=== PATIENT | male | born 1940 ===

== ENCOUNTER 2023-09-13 07:30 | Inpatient (IN) | payer OTHER ==
[~2023-09-13] VITALS: Ht 167.6 cm; Wt 68.0 kg
[2023-09-13 08:58] LABS: PH,URINE 5.5 (5.0-8.0); URINE APPEARANCE Clear; URINE BILIRRUBIN Negative (NEGATIVE); URINE BLOOD Negative; URINE COLOR Yellow; URINE GLUCOSE Negative (NEGATIVE); URINE LEUKOCYTE Negative; URINE NITRATE Negative; URINE PROTEIN Negative (NEGATIVE); URINE UROBILINOGEN 0.2 E.U./dl
[2023-09-13] MEDS ORDERED: METFORMIN HCL1000 M2 PO (08:58)
[2023-09-13] MEDS ORDERED: ZESTRIL20 MG PO (08:58)
[2023-09-13] MEDS ORDERED: CHILDREN'S ASPI81 MG PO (08:58)
[2023-09-13 08:59] LABS: HEMATOCRIT 30.5 % (39.0-48.0); HEMOGLOBIN 10.2 g/dL (13-16.00); MEAN CELL VOLUME 85.4 fL (80.0-100.00); MEAN CORPUSCULAR HEMOGLOBIN 28.6 pg (27.00-32.0); MEAN CORPUSCULAR HGB CONC 33.5 g/dl (32.0-36.0); PLATELET COUNT 177 K/uL (150-450); RED BLOOD COUNT 3.57 M/uL (4.00-6.00); RED CELL DISTRIBUTION WIDTH 14.1 % (11.5-14.5)
[2023-09-13 09:02] LABS: URINE EPITHELIAL CELLS 2.1 uL (0.0-38.8)
[2023-09-13 09:04] LABS: URINE BACTERIA 0 uL (0.0-1933); URINE WBC 1.3 uL (0.0-23.2)
[2023-09-13 09:34] LABS: ALBUMIN 3.5 gm/dL (3.4-5.0); BILIRUBIN TOTAL 0.58 mg/dL (0.3-1.2); CALCIUM 8.9 mg/dL (8.5-10.1); CREATININE SERUM 1.1 mg/dL (0.70-1.30); GFR 64.09; GLOBULINA 3.2 G/DL (2.4-3.5); INR 1.11; PARTIAL THROMBOPLASTIN TIME 31.2 SECONDS (22.0-34.0); POTASSIUM 4.04 mEq/L (3.5-5.1); PROTHROMBIN TIME 11.6 SECONDS (9.0-11.5); TOTAL PROTEIN 6.7 gm/dL (6.4-8.2)
[2023-09-19] MEDS ORDERED: CEFAZOLIN SODIUM 1,000 MG VIAL ONE (06:46)
[2023-09-19] MEDS ORDERED: KETOROLAC TROMETHAMINE 60 MG VIAL IM ONE ×2 (06:46→08:45)
[2023-09-19] MEDS ORDERED: LIDOCAINE HCL 1%/Epi 20ML VIAL IJ ONE ×2 (06:47→08:45)
[2023-09-19] MEDS ORDERED: TRANEXAMIC ACID 100MG/1ML (1000MG) AMPUL IV ONE (06:47)
[2023-09-19] MEDS ORDERED: BUPIVACAINE HCL/PF 0.5% 30ML ML ONE (06:47)
[2023-09-19] MEDS ORDERED: VANCOMYCIN HCL 1,000 MG VIAL ONE (07:27)
[2023-09-19] MEDS ORDERED: POVIDONE-IODINE 3 EA MED..SWAB TOP ONE (07:27)
[2023-09-19] MEDS ORDERED: MAXFE CAPLET1 EAC1 (07:42)
[2023-09-19] MEDS ORDERED: ISOPROPYL ALCOHOL 30 ML OUNCE TOP ONE (08:45)
[2023-09-19] MEDS ORDERED: BUPIVACAINE HCL/PF 0.5% 30ML ML IU ONE (08:45)
[2023-09-19] MEDS ORDERED: CEFAZOLIN SODIUM 2,000 MG in 0.9 % SODIUM CHLORIDE 100 ML IV ONE (08:45)
[2023-09-19] MEDS ORDERED: VANCOMYCIN HCL 1,000 MG in 0.9 % SODIUM CHLORIDE 250 ML IR ONE (08:45)
[2023-09-19] MEDS ORDERED: TRANEXAMIC ACID 1,000 MG in 0.9 % SODIUM CHLORIDE 100 ML IV ONE (08:45)
[2023-09-19] MEDS ORDERED: MORPHINE SULFATE 4 MG/ML VIAL IV ONE (08:45)
[2023-09-19] MEDS ORDERED: POVIDONE-IODINE 118 ML BOTT TOP ONE (08:45)
[2023-09-19] MEDS ORDERED: MORPHINE SULFATE 4 MG/ML CARTRIDGE IV PRN (09:45)
[2023-09-19] MEDS ORDERED: OxyCODONE HCL 5 MG TABLET (ROXICODONE) PO PRN (09:45)
[2023-09-19] MEDS ORDERED: SODIUM CHLORIDE 0.45 % 1,000 ML IV SCH (09:45)
[2023-09-19] MEDS ORDERED: ONDANSETRON HCL 2 MG/ML VIAL IV PRN (09:45)
[2023-09-19] MEDS ORDERED: ACETAMINOPHEN 500 MG GEL..CAP PO SCH (12:00)
[2023-09-19] MEDS ORDERED: GABAPENTIN 300 MG CAPSULE PO SCH (17:00)
[2023-09-19] MEDS ORDERED: CEFAZOLIN SODIUM 1,000 MG VIAL IV SCH (17:00)
[2023-09-20 05:28] LABS: HEMATOCRIT 23.4 % (39.0-48.0); MEAN CELL VOLUME 83.8 fL (80.0-100.00); MEAN CORPUSCULAR HEMOGLOBIN 28.6 pg (27.00-32.0); MEAN CORPUSCULAR HGB CONC 34.4 g/dl (32.0-36.0); PLATELET COUNT 139 K/uL (150-450); RED BLOOD COUNT 2.79 M/uL (4.00-6.00); RED CELL DISTRIBUTION WIDTH 14.1 % (11.5-14.5)
[2023-09-20] MEDS ORDERED: ELIQUIS2.5 MG PO (08:40)
[2023-09-20] MEDS ORDERED: PERCOCET 5-3251 EACH PO (08:40)
[2023-09-20] MEDS ORDERED: CEFADROXIL500 MG PO (08:40)
[2023-09-20] MEDS ORDERED: SENNOSIDES 1 TAB TABLET PO SCH (09:00)
[2023-09-20] MEDS ORDERED: APIXABAN 2.5 MG TABLET PO SCH (09:00)
[2023-09-20] MEDS ORDERED: ENALAPRILAT DIHYDRATE 2.5 MG/2 ML VIAL IV ONE (10:43)
[2023-09-20] MEDS ORDERED: FUROsemide 20 MG/2 ML VIAL IV PRN (11:00)
[2023-09-20] MEDS ORDERED: LISINOPRIL 20 MG TABLET PO SCH (12:26)
[2023-09-20] MEDS ORDERED: DEXTROSE 50 % IN WATER 0.5 G/ML DISP.SYRIN IV PRN (12:30)
[2023-09-20] MEDS ORDERED: INSULIN LISPRO 1,000 UNIT/10 ML UNITS SUBCUTANEO PRN (12:30)
[2023-09-20] MEDS ORDERED: ENALAPRILAT DIHYDRATE 1.25 MG/ML VIAL IV PRN (12:30)
[2023-09-20] MEDS ORDERED: PROMETHAZINE HCL 25 MG/ML AMPUL ONE (13:11)
[2023-09-20] MEDS ORDERED: SOD FERRIC GLUC COMPLX/SUCROSE 62.5 MG/5 ML AMPUL IV SCH (14:15)
[2023-09-20] MEDS ORDERED: Cyanocobalamin/Mecobalamin 1 TAB.SL SL SCH (14:15)
[2023-09-20] MEDS ORDERED: VITAMIN B COMPLEX 1 EACH PO SCH (14:15)
[2023-09-21 05:34] LABS: HEMATOCRIT 25.5 % (39.0-48.0); MEAN CELL VOLUME 83.7 fL (80.0-100.00); MEAN CORPUSCULAR HGB CONC 33.6 g/dl (32.0-36.0); PLATELET COUNT 142 K/uL (150-450); RED BLOOD COUNT 3.04 M/uL (4.00-6.00); RED CELL DISTRIBUTION WIDTH 13.8 % (11.5-14.5)
[2023-09-21 05:35] LABS: HEMOGLOBIN 8.6 g/dL (13-16.00); MEAN CORPUSCULAR HEMOGLOBIN 28.2 pg (27.00-32.0)
[2023-09-21] MEDS ORDERED: IRON FUM,PS/FOLIC ACID/VITC/B3 1 CAP CAPSULE PO SCH (09:00)
[2023-09-22 11:54] LABS: HEMATOCRIT 33.1 % (39.0-48.0); HEMOGLOBIN 10.9 g/dL (13-16.00); MEAN CELL VOLUME 84.7 fL (80.0-100.00); MEAN CORPUSCULAR HEMOGLOBIN 27.9 pg (27.00-32.0); MEAN CORPUSCULAR HGB CONC 32.9 g/dl (32.0-36.0); PLATELET COUNT 159 K/uL (150-450); RED BLOOD COUNT 3.91 M/uL (4.00-6.00); RED CELL DISTRIBUTION WIDTH 14.5 % (11.5-14.5)
== END 2023-09-22 11:35 | DRG 470 ==
LOC: SURH 09-19 05:30 → O/R 09-19 05:30 → SURH 09-19 07:30
PROVIDERS: ADMIT Orthopaedic Surgery; ATTEND Orthopaedic Surgery
PROC: 0SRD0J9 Replacement of Left Knee Joint with Synthetic Substitute, Cemented, Open Approach (ICD-10-PCS; principal; 2023-09-19 09:30)
PROC: 30233N1 Transfusion of Nonautologous Red Blood Cells into Peripheral Vein, Percutaneous Approach (ICD-10-PCS; 2023-09-20)
DX: M17.12 Unilateral primary osteoarthritis, left knee (principal); D62 Acute posthemorrhagic anemia; M22.12 Recurrent subluxation of patella, left knee; I10 Essential (primary) hypertension